=== PATIENT | male | born 1965 | race African-American/Black ===

== ENCOUNTER 2016-07-08 14:16 | Emergency (ER) | payer OTHER ==
[2013-10-28 07:09] VITALS: BMI 23.7
[~2016-07-08 14:16] MED LIST: HYDROCODONE-APA1 TAB PO
== END 2016-07-08 20:40 | disposition home or self-care (01) ==
LOC: D.ER 14:16
DX: L50.9 Urticaria, unspecified (principal); K21.9 Gastro-esophageal reflux disease without esophagitis; F17.200 Nicotine dependence, unspecified, uncomplicated

== ENCOUNTER 2016-08-09 09:48 | Emergency (ER) | payer OTHER ==
[2013-10-28 07:09] VITALS: BMI 23.7
[2016-08-09 10:39] LABS: BASOPHILS 0.1 % (0.0-2.0); EOSINOPHILS 1.5 % (0-7); HEMATOCRIT 40.8 % (42.0-54.0); IMMATURE GRANULOCYTES 0.1 % (0-5); LYMPHOCYTES 24.6 % (15-50); MCH 30.6 pg (26.0-34.0); MCHC 34.3 g/dL (31.0-37.0); MCV 89.3 fL (80.0-100.0); MEAN PLATELET VOLUME 10.1 fL (7.4-10.4); MONOCYTES 18.5 % (2-11); NEUTROPHILS 55.2 % (40-80); PLATELET COUNT 281 10x3/uL (130-400); RBC 4.57 10x6/uL (4.20-6.10); RDW 17.4 % (11.5-14.5); WBC 7.3 10x3/uL (4.8-10.8)
[2016-08-09 10:59] LABS: ALBUMIN 4.5 g/dL (3.4-5.0); ANION GAP 22.9 mmol/L (8-16); BILIRUBIN - TOTAL 0.31 mg/dL (0.2-1.3); CALCIUM 9.4 mg/dL (8.5-10.1); CARBON DIOXIDE 20.4 mmol/L (21.0-32.0); CREATININE - SERUM 2.2 mg/dL (0.6-1.3); POTASSIUM - SERUM 4.3 mmol/L (3.5-5.1); PROTEIN - SERUM 8.6 g/dL (6.4-8.2)
[2016-08-09 11:09] LABS: APPEARANCE HAZY (CLEAR); BILIRUBIN NEGATIVE (NEGATIVE); COLOR YELLOW (YELLOW); GLUCOSE NEGATIVE (NEGATIVE); KETONE NEGATIVE (NEGATIVE); LEUKOCYTE ESTERASE NEGATIVE (NEGATIVE); NITRITE NEGATIVE (NEGATIVE); PROTEIN 1+ mg/dL (NEGATIVE); UROBILINOGEN NORMAL (NORMAL)
[2016-08-09 11:10] LABS: BACTERIA MODERATE /hpf (NONE SEEN); EPITHELIAL CELLS 0-5 /hpf (0-5); MUCUS <1+ /lpf (NONE SEEN)
== END 2016-08-09 15:05 | disposition home or self-care (01) ==
LOC: D.ER 09:48
PROVIDERS: Family Medicine
DX: K86.1 Other chronic pancreatitis (principal); F10.129 Alcohol abuse with intoxication, unspecified; R11.2 Nausea with vomiting, unspecified

== ENCOUNTER 2016-08-30 08:59 | Emergency (ER) | payer OTHER ==
[2013-10-28 07:09] VITALS: BMI 23.7
[2016-08-30 10:22] LABS: BASOPHILS 0.9 % (0.0-2.0); EOSINOPHILS 20.7 % (0-7); HEMATOCRIT 37.1 % (42.0-54.0); HEMOGLOBIN 12.7 g/dL (13.5-17.5); IMMATURE GRANULOCYTES 0.7 % (0-5); LYMPHOCYTES 27.1 % (15-50); MCH 30.6 pg (26.0-34.0); MCHC 34.2 g/dL (31.0-37.0); MCV 89.4 fL (80.0-100.0); MEAN PLATELET VOLUME 11.3 fL (7.4-10.4); MONOCYTES 11.5 % (2-11); NEUTROPHILS 39.1 % (40-80); RBC 4.15 10x6/uL (4.20-6.10); RDW 18.5 % (11.5-14.5); WBC 7.6 10x3/uL (4.8-10.8)
[2016-08-30 10:26] LABS: PLATELET COUNT 210 10x3/uL (130-400)
[2016-08-30 10:38] LABS: ALBUMIN 4.5 g/dL (3.4-5.0); ALKALINE PHOSPHATASE 108 U/L (46-116); ALT (SGPT) 115 U/L (10-68); BILIRUBIN - TOTAL 0.91 mg/dL (0.2-1.3); CALC OSMOLALITY 270 mosm/kg (275-300); CALCIUM 9.4 mg/dL (8.5-10.1); CARBON DIOXIDE 25.3 mmol/L (21.0-32.0); CHLORIDE - SERUM 99 mmol/L (98-107); CREATININE - SERUM 0.9 mg/dL (0.6-1.3); GLUCOSE 82 mg/dL (74-106); POTASSIUM - SERUM 3.2 mmol/L (3.5-5.1); PROTEIN - SERUM 8.5 g/dL (6.4-8.2); SODIUM 136 mmol/L (136-145); UREA NITROGEN 12 mg/dL (7-18); eGFR NON AFRICAN AMERICAN > 90 mL/min (90-120)
== END 2016-08-30 11:16 | disposition home or self-care (01) ==
LOC: D.ER 08:59
PROVIDERS: Emergency Medicine
DX: B34.9 Viral infection, unspecified (principal); M25.50 Pain in unspecified joint; R21 Rash and other nonspecific skin eruption; K86.1 Other chronic pancreatitis

== ENCOUNTER 2020-10-05 11:49 | Emergency (ER) | payer OTHER ==
[~2020-10-05] VITALS: Ht 180.3 cm; Wt 86.4 kg
[2020-10-05 11:54] VITALS: Ht 180.3 cm; Wt 86.4 kg
[2020-10-05] MEDS ORDERED: PERMETHRIN60 GM TOPICAL (12:07)
[2020-10-05 12:12] VITALS: BP 118/70
== END 2020-10-05 12:12 | disposition home or self-care (01) ==
LOC: D.ER 11:49
DX: B86 Scabies (principal)

== ENCOUNTER 2020-11-07 15:33 | Inpatient (IN) | payer OTHER ==
[2020-11-07] VITALS (9 sets, daily range): BP systolic 114–169; BP diastolic 68–101; BMI 25.1
[~2020-11-07] VITALS: Ht 180.3 cm; Wt 85.7 kg
[~2020-11-07 15:33] MED LIST changes: +PERMETHRIN60 GM TOPICAL
[2020-11-07 16:13] LABS: BASOPHILS 1.3 % (0-2); EOSINOPHILS 2.2 % (0-7); HEMATOCRIT 39.4 % (42.0-54.0); HEMOGLOBIN 12.8 g/dL (13.5-17.5); LYMPHOCYTES 33.9 % (15-50); MCH 32.6 pg (26.0-34.0); MCHC 32.6 g/dL (31.0-37.0); MCV 100.1 fL (80.0-100.0); MEAN PLATELET VOLUME 9.9 fL (7.4-10.4); MONOCYTES 13.8 % (2-11); NEUTROPHILS 48.8 % (40-80); PLATELET COUNT 179 10x3/uL (130-400); RBC 3.93 10x6/uL (4.20-6.10); RDW 17.7 % (11.5-14.5); WBC 9.2 10x3/uL (4.8-10.8)
[2020-11-07 16:15] LABS: CALC OSMOLALITY 267 mosm/kg (275-300); CALCIUM 9.8 mg/dL (8.5-10.1); CARBON DIOXIDE 16.5 mmol/L (21.0-32.0); CHLORIDE - SERUM 88 mmol/L (98-107); CREATININE - SERUM 1.7 mg/dL (0.6-1.3); POTASSIUM - SERUM 3.6 mmol/L (3.5-5.1); SODIUM 132 mmol/L (136-145); UREA NITROGEN 10 mg/dL (7-18); eGFR NON AFRICAN AMERICAN 45 mL/min (90-120)
[2020-11-07 16:26] LABS: GLUCOSE 176 mg/dL (74-106)
[2020-11-07 16:41] LABS: ALBUMIN 4.5 g/dL (3.4-5.0); ALKALINE PHOSPHATASE 74 U/L (30-120); ALT (SGPT) 81 U/L (10-68); BILIRUBIN - TOTAL 0.75 mg/dL (0.2-1.3); CREATINE KINASE 520 UL (21-232); LIPASE 683 U/L (73-393); PRO BNP 416 pg/mL (0-125); PROTEIN - SERUM 9.4 g/dL (6.4-8.2)
[2020-11-07 16:50] LABS: CKMB 2.9 U/L (0.0-3.6); TROPONIN-I < 0.017 ng/mL (0.000-0.060)
--- NOTE | 2020-11-07 17:32 | NUR ---
CALLED [facility]ESP[facility]ORY AT THIS TIME FOR ABG'S
--- NOTE | 2020-11-07 17:47 | NUR ---
LATE ENTRY: AROUND 1610 PT STARTED HAVING A SEIZURE, MD VERBALLY GAVE ATIVAN ORDERS, IT WAS ADMINISTERED IM, IN R DELTIOD, PT SEIZURE LASTED APPROX 2 MIN, JERKING, STIFFNESS, FOAMING AT MOUTH NOTED. PT DID RETURN TO SPEAKING VERBALLY AND ANSWERING QUESTION 30 MIN AFTER EPISODE
[2020-11-07 18:37] LABS: UDS - AMPHET NEGATIVE QUAL (NEGATIVE); UDS - BARB NEGATIVE QUAL (NEGATIVE); UDS - BENZO NEGATIVE QUAL (NEGATIVE); UDS - COCAINE NEGATIVE QUAL (NEGATIVE); UDS - OPIATE NEGATIVE QUAL (NEGATIVE); UDS - PCP NEGATIVE QUAL (NEGATIVE); UDS - THC NEGATIVE QUAL (NEGATIVE)
[2020-11-07 18:47] LABS: BILIRUBIN NEGATIVE (NEGATIVE); KETONE NEGATIVE (NEGATIVE); NITRITE NEGATIVE (NEGATIVE); UROBILINOGEN NORMAL mg/dL (< 2)
[2020-11-07 18:48] LABS: BACTERIA MODERATE HPF (NONE SEEN)
--- NOTE | 2020-11-07 20:56 | NUR ---
PT ARRIVED FROM ER PER STRETCHER 2044. AWAKE ALERT AND ORIENTED TO CURRENT BUT DOES NOT RECALL PROCESS OF COMING TO HOSPITAL. STATES HAS BEEN OUT OF SEIZURE MEDS AND WAS GOING TO GET THEM. ON RA WITH BS CLEAR. ABD SOFT WITH ACTIVE BS. SORES HEALING TO LEGS. 20GPIV TO BILATERAL UPPER ARMS. WILL CONT TO MONITOR. ETOH REMOVED FROM BELONGS AND PLACED IN DISPATCH OFFICER OFFICE. PT CALLED MOM TO TELL WHERE HE WAS. NSR ON CM WITH RATE 80
[2020-11-07 21:04] LABS: APTT 24.6 SECONDS (22.8-39.4); INR 1.08 (0.85-1.17)
[2020-11-07 21:22] LABS: % SATURATION 59 % (15-55); IRON 174 ug/dl (35-150); TOTAL IRON BIND CAPACITY 293 ug/dl (260-445); UNSAT IRON BIND CAPACITY 119 ug/dl (150-375)
[2020-11-08] VITALS (22 sets, daily range): BP systolic 130–171; BP diastolic 84–100
[2020-11-08 04:29] LABS: BASOPHILS 0.7 % (0-2); EOSINOPHILS 0.5 % (0-7); HEMATOCRIT 36.6 % (42.0-54.0); HEMOGLOBIN 12.3 g/dL (13.5-17.5); LYMPHOCYTES 12.5 % (15-50); MCH 32.9 pg (26.0-34.0); MCHC 33.6 g/dL (31.0-37.0); MCV 97.9 fL (80.0-100.0); MEAN PLATELET VOLUME 9.8 fL (7.4-10.4); MONOCYTES 15.3 % (2-11); PLATELET COUNT 139 10x3/uL (130-400); RBC 3.74 10x6/uL (4.20-6.10); RDW 17.2 % (11.5-14.5); WBC 7.8 10x3/uL (4.8-10.8)
--- NOTE | 2020-11-08 05:12 | NUR ---
DR OLIVERA AWARE OF CONSULT.
[2020-11-08 05:13] LABS: BILIRUBIN - TOTAL 1.25 mg/dL (0.2-1.3); CALCIUM 8.9 mg/dL (8.5-10.1); CREATININE - SERUM 1.1 mg/dL (0.6-1.3); PROTEIN - SERUM 8.4 g/dL (6.4-8.2)
[2020-11-08 05:14] LABS: ANION GAP 19.5 mmol/L (8-16); CARBON DIOXIDE 22.5 mmol/L (21.0-32.0)
[2020-11-08 12:52] LABS: ANION GAP 17.6 mmol/L (8-16); CALCIUM 8.9 mg/dL (8.5-10.1); CARBON DIOXIDE 23.9 mmol/L (21.0-32.0); CREATININE - SERUM 1.2 mg/dL (0.6-1.3)
[2020-11-08 12:53] LABS: POTASSIUM - SERUM 3.5 mmol/L (3.5-5.1)
[2020-11-09] VITALS (11 sets, daily range): BP systolic 126–183; BP diastolic 66–107; Ht 180.3 cm; Wt 85.7 kg
[2020-11-09 05:21] LABS: BASOPHILS 0.6 % (0-2); EOSINOPHILS 5.4 % (0-7); HEMATOCRIT 32.9 % (42.0-54.0); HEMOGLOBIN 10.9 g/dL (13.5-17.5); LYMPHOCYTES 16.8 % (15-50); MCH 32.8 pg (26.0-34.0); MCHC 33.1 g/dL (31.0-37.0); MCV 99.3 fL (80.0-100.0); MEAN PLATELET VOLUME 9.5 fL (7.4-10.4); MONOCYTES 16.5 % (2-11); NEUTROPHILS 60.7 % (40-80); PLATELET COUNT 118 10x3/uL (130-400); RBC 3.31 10x6/uL (4.20-6.10); RDW 17.5 % (11.5-14.5); WBC 7.3 10x3/uL (4.8-10.8)
[2020-11-09 05:38] LABS: ALBUMIN 3.4 g/dL (3.4-5.0); ANION GAP 16.4 mmol/L (8-16); BILIRUBIN - TOTAL 1.41 mg/dL (0.2-1.3); CALCIUM 8.1 mg/dL (8.5-10.1); CARBON DIOXIDE 23.7 mmol/L (21.0-32.0); CREATININE - SERUM 1.2 mg/dL (0.6-1.3); MAGNESIUM - SERUM 1.7 mg/dL (1.8-2.4); POTASSIUM - SERUM 3.1 mmol/L (3.5-5.1); PROTEIN - SERUM 7.5 g/dL (6.4-8.2)
--- NOTE | 2020-11-10 02:02 | NUR ---
PT RESTING IN BED WITH EYES OPEN WATCHING TV. PT IS BLEEDING FROM HIS L ARM HAS BEEN PICKING @ SKIN/SCABS AND EXPRESS HE WAS FEELING ANXIOUS. PT WAS GIVEN MED AND WILL BE MONITOR.
[2020-11-10 04:00] VITALS: BP 131/82
--- NOTE | 2020-11-10 07:30 | NUR ---
PT. RECEIVED RESTING AWAKE IN BED, IRREGULAR HEART RATE NOTED THROUGH APICAL AND LT RADIAL PULSE. TELE ON, SR 96 AT THIS TIME. DENIES ANY PAIN OR NEEDS AT THIS TIME. ROOM AIR, IV SITES INTACT TO LEFT AND R. UPPER ARMS. NONSKID SOCKS ON, CL WITHIN REACH. PT INDEPENDENT AND RECOGNIZES NEED TO CALL WHEN HELP IS NEEDED. SR UPX2.
[2020-11-10 08:25] VITALS: BP 141/86
[2020-11-10 11:11] LABS: BASOPHILS 0.7 % (0-2); HEMATOCRIT 34.5 % (42.0-54.0); HEMOGLOBIN 11.3 g/dL (13.5-17.5); MCH 32.6 pg (26.0-34.0); MCHC 32.9 g/dL (31.0-37.0); MCV 99.2 fL (80.0-100.0); MEAN PLATELET VOLUME 9.4 fL (7.4-10.4); MONOCYTES 18.6 % (2-11); NEUTROPHILS 56.7 % (40-80); PLATELET COUNT 130 10x3/uL (130-400); RBC 3.48 10x6/uL (4.20-6.10); RDW 17.3 % (11.5-14.5); WBC 7.5 10x3/uL (4.8-10.8)
[2020-11-10 11:30] LABS: ALBUMIN 3.8 g/dL (3.4-5.0); ANION GAP 22.2 mmol/L (8-16); BILIRUBIN - TOTAL 1.24 mg/dL (0.2-1.3); CALCIUM 8.9 mg/dL (8.5-10.1); CARBON DIOXIDE 18.7 mmol/L (21.0-32.0); CREATININE - SERUM 1.2 mg/dL (0.6-1.3); PROTEIN - SERUM 7.6 g/dL (6.4-8.2)
[2020-11-10 11:36] LABS: POTASSIUM - SERUM 3.9 mmol/L (3.5-5.1)
[2020-11-10 13:01] VITALS: BP 164/99
[2020-11-10 14:34] LABS: CHOL - HDL RATIO 2.8 ratio (2.3-4.9); LDL-HDL RATIO 1.6 ratio (1.5-3.5)
--- NOTE | 2020-11-10 17:05 | NUR ---
HOLD DINNER TRAY PER ORDER BECAUSE PANCREATIC ENZYMES ARE INCREASED. MY HAVE SIPS AND CHIPS. PATIENT VERBALIZED UNDERSTANDING. CALL LIGHT WITHIN REACH. PHYSICIAN WILL REEVALUATE IN AM.
--- NOTE | 2020-11-10 17:08 | NUR ---
5MG APRESOLINE GIVEN IVP FOR BP 178/101. DINNER TRAY HELD PER MD ORDER. PT GIVEN ICE CHIPS.
[2020-11-10 17:18] VITALS: BP 178/101
[2020-11-10 20:00] VITALS: BP 150/88
[2020-11-11] VITALS: BP 167/94
[2020-11-11 04:00] VITALS: BP 155/88
--- NOTE | 2020-11-11 05:00 | NUR ---
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 I LET HIM KNOW THAT I WILL INFORM THE NURSE IN THE AM ABOUT IT.
--- NOTE | 2020-11-11 05:15 | NUR ---
CHANGE PT BEDDIG AND SHEETS HE DENIED WANTING A SHOWER, WIPES WERE PROVIDE FOR PERSONAL CLEANING. WILL CONT TO MONITOR.
[2020-11-11 06:17] LABS: HEMATOCRIT 33.1 % (42.0-54.0); HEMOGLOBIN 11.2 g/dL (13.5-17.5); MCH 33.5 pg (26.0-34.0); MCHC 33.8 g/dL (31.0-37.0); MCV 99.3 fL (80.0-100.0); MEAN PLATELET VOLUME 9.8 fL (7.4-10.4); PLATELET COUNT 142 10x3/uL (130-400); RBC 3.34 10x6/uL (4.20-6.10); RDW 17.1 % (11.5-14.5); WBC 6.3 10x3/uL (4.8-10.8)
[2020-11-11 06:36] LABS: ALBUMIN 3.8 g/dL (3.4-5.0); ALKALINE PHOSPHATASE 58 U/L (30-120); ALT (SGPT) 49 U/L (10-68); BILIRUBIN - TOTAL 1.17 mg/dL (0.2-1.3); CALC OSMOLALITY 267 mosm/kg (275-300); CALCIUM 9.5 mg/dL (8.5-10.1); CARBON DIOXIDE 19.8 mmol/L (21.0-32.0); CHLORIDE - SERUM 97 mmol/L (98-107); GLUCOSE 89 mg/dL (74-106); LIPASE 669 U/L (73-393); POTASSIUM - SERUM 3.4 mmol/L (3.5-5.1); PROTEIN - SERUM 8.3 g/dL (6.4-8.2); SODIUM 133 mmol/L (136-145); UREA NITROGEN 21 mg/dL (7-18); eGFR NON AFRICAN AMERICAN 82 mL/min (90-120)
[2020-11-11 07:30] LABS: EOSINOPHILS 7 % (0-7); LYMPHOCYTES 23 % (15-50); MONOCYTES 18 % (2-11); NEUTROPHILS 50 % (40-80); PLATELET ESTIMATE NORMAL; PLATELET MORPHOLOGY GIANT PLTS PRESENT
[2020-11-11 08:15] VITALS: BP 160/92
[2020-11-11 11:43] VITALS: BP 148/97
--- NOTE | 2020-11-11 13:11 | NUR ---
0700 BEDSIDE REPORT RECEIVED AWAKE ALERT IN BED WITHOUT COMPLAINTS
--- NOTE | 2020-11-11 13:12 | NUR ---
1205 NEW ORDER NOTED FOR DIABETIC DIET CALLED KITCHEN TO BRING A LUNCH TRAY UP FOR PATIENT
--- NOTE | 2020-11-11 13:16 | NUR ---
1100 NOTIFIED HELEN WHYTE, ASKING FOR DIET TRAY. STATED LIPASE ELEVATED AND TO GIVE PT JELLO FOR NOW
[2020-11-12 01:35] VITALS: BP 161/94
--- NOTE | 2020-11-12 03:04 | NUR ---
I have reviewed this patient and I concur with the Shift Assessment completed by the Licensed Practical Nurse today this shift.
--- NOTE | 2020-11-12 03:52 | NUR ---
PT BP 233/131 HR 158 MED GIVEN BP MONITORED FOR 1H. BP DOWN TO 168/100 HR 108. WILL CONT TO MONITOR PT.
[2020-11-12 04:58] VITALS: BP 156/92
[2020-11-12 08:24] VITALS: BP 162/95
[2020-11-12 09:20] LABS: ALBUMIN 3.8 g/dL (3.4-5.0); ALKALINE PHOSPHATASE 60 U/L (30-120); ALT (SGPT) 57 U/L (10-68); BILIRUBIN - TOTAL 1.15 mg/dL (0.2-1.3); CALC OSMOLALITY 267 mosm/kg (275-300); CALCIUM 9.4 mg/dL (8.5-10.1); CARBON DIOXIDE 18.6 mmol/L (21.0-32.0); CHLORIDE - SERUM 97 mmol/L (98-107); GLUCOSE 106 mg/dL (74-106); LIPASE 557 U/L (73-393); POTASSIUM - SERUM 3.6 mmol/L (3.5-5.1); PROTEIN - SERUM 8.3 g/dL (6.4-8.2); SODIUM 133 mmol/L (136-145); UREA NITROGEN 19 mg/dL (7-18); eGFR NON AFRICAN AMERICAN 82 mL/min (90-120)
[2020-11-12 09:21] LABS: BASOPHILS 0.6 % (0-2); EOSINOPHILS 8.4 % (0-7); HEMATOCRIT 35.9 % (42.0-54.0); HEMOGLOBIN 11.8 g/dL (13.5-17.5); LYMPHOCYTES 26.3 % (15-50); MCH 32.9 pg (26.0-34.0); MCV 99.9 fL (80.0-100.0); MONOCYTES 22.4 % (2-11); NEUTROPHILS 42.3 % (40-80); RDW 17.2 % (11.5-14.5); WBC 6.1 10x3/uL (4.8-10.8)
[2020-11-12 09:26] LABS: PLATELET COUNT 173 10x3/uL (130-400)
[2020-11-12 13:02] VITALS: BP 159/82
[2020-11-12 17:44] VITALS: BP 139/77
[2020-11-12 20:00] VITALS: BP 147/93
[2020-11-13] VITALS: BP 149/4
--- NOTE | 2020-11-13 02:29 | NUR ---
I have reviewed this patient and I concur with the Shift Assessment completed by the Licensed Practical Nurse today this shift.
[2020-11-13 06:24] LABS: HEMATOCRIT 34.2 % (42.0-54.0); HEMOGLOBIN 11.2 g/dL (13.5-17.5); MCH 32.7 pg (26.0-34.0); MCHC 32.7 g/dL (31.0-37.0); MCV 100.1 fL (80.0-100.0); MEAN PLATELET VOLUME 9.7 fL (7.4-10.4); PLATELET COUNT 164 10x3/uL (130-400); RBC 3.42 10x6/uL (4.20-6.10); RDW 16.5 % (11.5-14.5); WBC 5.2 10x3/uL (4.8-10.8)
[2020-11-13 07:01] LABS: ALBUMIN 3.6 g/dL (3.4-5.0); ALKALINE PHOSPHATASE 51 U/L (30-120); ALT (SGPT) 63 U/L (10-68); BILIRUBIN - TOTAL 0.78 mg/dL (0.2-1.3); CALC OSMOLALITY 271 mosm/kg (275-300); CALCIUM 9.1 mg/dL (8.5-10.1); CARBON DIOXIDE 22.3 mmol/L (21.0-32.0); CHLORIDE - SERUM 101 mmol/L (98-107); GLUCOSE 99 mg/dL (74-106); LIPASE 454 U/L (73-393); POTASSIUM - SERUM 3.8 mmol/L (3.5-5.1); PROTEIN - SERUM 7.3 g/dL (6.4-8.2); SODIUM 135 mmol/L (136-145); UREA NITROGEN 18 mg/dL (7-18); eGFR NON AFRICAN AMERICAN 82 mL/min (90-120)
[2020-11-13 08:05] LABS: EOSINOPHILS 11 % (0-7); LYMPHOCYTES 35 % (15-50); MONOCYTES 12 % (2-11); NEUTROPHILS 32 % (40-80); PLATELET ESTIMATE NORMAL
[2020-11-13 08:50] VITALS: BP 179/99
[2020-11-13 13:31] VITALS: BP 166/88
[2020-11-13 17:08] VITALS: BP 107/72
--- NOTE | 2020-11-13 19:00 | NUR ---
BEDSIDE REPORT RECEIVED AND CARE OF PT ASSUMED. PT LYING IN LOW BURGOS'S POSITION WATCHING TV. IV TO RIGHT FA PATENT WITH NS INFUSING AT 30 ML/HR. TELEMETRY IN PLACE PER ORDER AND READING 84 SR AT THIS ASSESSMENT. WILL MONITOR FOR NEEDS.
[2020-11-13 20:00] VITALS: BP 177/93
--- NOTE | 2020-11-13 21:30 | NUR ---
PT SHOWERED AND ALL LINENS AND GOWN CHANGED.
--- NOTE | 2020-11-13 22:17 | NUR ---
HS MEDICATIONS GIVEN TO INCLUDE ATIVAN 1 MG IVP PER PT REQUEST FOR ANXIETY.
[2020-11-14] VITALS: BP 165/91
[2020-11-14 04:00] VITALS: BP 148/86
[2020-11-14 06:51] LABS: BASOPHILS 0.9 % (0-2); HEMATOCRIT 35.1 % (42.0-54.0); HEMOGLOBIN 11.7 g/dL (13.5-17.5); LYMPHOCYTES 24.1 % (15-50); MCH 33.4 pg (26.0-34.0); MCHC 33.5 g/dL (31.0-37.0); MCV 99.8 fL (80.0-100.0); MEAN PLATELET VOLUME 9.8 fL (7.4-10.4); MONOCYTES 23.8 % (2-11); NEUTROPHILS 40.2 % (40-80); PLATELET COUNT 193 10x3/uL (130-400); RBC 3.52 10x6/uL (4.20-6.10); RDW 16.3 % (11.5-14.5); WBC 5.8 10x3/uL (4.8-10.8)
[2020-11-14 07:14] LABS: ALBUMIN 3.7 g/dL (3.4-5.0); ALKALINE PHOSPHATASE 61 U/L (30-120); ALT (SGPT) 70 U/L (10-68); BILIRUBIN - TOTAL 0.79 mg/dL (0.2-1.3); CALC OSMOLALITY 264 mosm/kg (275-300); CALCIUM 9.6 mg/dL (8.5-10.1); CARBON DIOXIDE 20.3 mmol/L (21.0-32.0); CHLORIDE - SERUM 98 mmol/L (98-107); GLUCOSE 103 mg/dL (74-106); LIPASE 417 U/L (73-393); MAGNESIUM - SERUM 1.3 mg/dL (1.8-2.4); POTASSIUM - SERUM 3.4 mmol/L (3.5-5.1); PROTEIN - SERUM 8.3 g/dL (6.4-8.2); SODIUM 132 mmol/L (136-145); eGFR NON AFRICAN AMERICAN 82 mL/min (90-120)
[2020-11-14 07:15] LABS: UREA NITROGEN 12 mg/dL (7-18)
[2020-11-14 10:49] VITALS: BP 129/76
[2020-11-14 12:28] VITALS: BP 135/81
[2020-11-14] MEDS ORDERED: THERAGRAN M [BK1 TAB PO (13:49)
[2020-11-14] MEDS ORDERED: KEPPRA500 MG PO (13:49)
[2020-11-14] MEDS ORDERED: HYDROXYZINE HCL10 MG PO (13:51)
--- NOTE | 2020-11-14 14:38 | NUR ---
PATIENT IV REMOVED WITH CATH TIP INTACT. WAITING FOR DISCHARGE PAPERS FOR DC. CALL LIGHT WITHIN REACH.
--- NOTE | 2020-11-14 15:00 | MORECARE ---
CASE MANAGEMENT DISCHARGE SUMMARY PATIENT: MARIA ANTONIA GUAJARDO UNIT: [id number] ADM DATE: 11/07/20 AGE: 55 : 65 SEX: M ROOM/BED: D.2239 AUTHOR: KIMO LOPEZ PHYSICIAN: REFERRING PHYSICIAN: MARGARITO MCCAIN MD DATE OF SERVICE: 11/14/20 Case Management Discharge Planning Summary COMMENTS ENTERED DATE: 11/14/20 14:51 CT COMMENT TYPE: Discharge Planning REVIEWER: Delfina Pereyra CM MET WITH PATIENT ABOUT DC PLANNING NEEDS. PATIENT DENIES THE NEED FOR HOME HEALTH, REHAB OR MEDICAL EQUIPMENT. STATES PLANS TO DC TO HOME TODAY AND WILL TAKE THE BUS. ALCOHOL EDUCATION PRINTED AND GIVEN TO PATIENT. CM TO FOLLOW AND ASSIST NEEDED. DCP REVIEW SUMMARY ANTICIPATED D/C DATE: EXPECTED LOS : CASE STATUS: DCP Initiated INITIAL REVIEW: 11/07/2020 INITIAL REVIEWER: Delfina Pereyra FINAL DISCHARGE DISPOSITION: : FINAL REVIEWER: FINAL REVIEW DATE: DCP Focus Questions & Answers DCP Screen QUESTION: ANSWER High Risk Factors: : Poor health literacy DCP Evaluation QUESTION: ANSWER Patient's current cognitive status: : *Oriented to person, place, situation, time and present Patient's ability to cope with chronic illness : d. No chronic illness Functional screen assessment: : Can meet basic needs but may require referral for resources Physical Status: : Independent with ADL's Living Arrangements: : Home Alone with Support Patient with capacity for self-care or can be cared for in same environment as prior to hospitalization? : Yes Baseline cognitive status: : *Oriented to person, place, situation, time and present Would patient like to participate in any Care Coordination programs (if applicable): : Not applicable Mental health screen: : No mental health history DCP Re-evaluation QUESTION: ANSWER Would patient like to participate in any Care Coordination programs (if applicable): : Not applicable PATIENT: MARIA ANTONIA GUAJARDO ENCOUNTER: [id number] MEDICAL RECORD#: [id number] ADMISSION DATE: 11/07/2020 DISCHARGE DATE: ATTENDING MD: MARGARITO FERREIRA : AGE: 55 MARITAL STATUS: S DC PLAN ID: [id number] FACILITY: [facility] PRINTED ON: 11/14/20 14:59 CT All edits/amendments must be made on the electronic document DICTATION DATE: 11/14/201458 INSURANCE SERVICE REPRESENTATIVE: DM 11/14/201458 RPT#: [id number] DC DATE: STATUS: ADM IN [facility] [address] [place] [address] END OF REPORT
--- NOTE | 2020-11-14 15:15 | NUR ---
PATIENT RECIEVED DC INSTRUCTIONS. VERBALIZED UNDERSTANDING. STATED HE WOULD BE CATCHING A BUS TO GET HOME. REMINDED PATIENT TO MAKE SURE HE PICKS UP HIS MEDICATIONS FROM [facility]. VERBALIZED UNDERSTANDING. AMBULATED WITH PATIENT OUT OF TO THE ER WITH PERSONAL BELONGINGS. PATIENT IS GOING TO CATCH BUS FOR TRANSPORTATION HOME.
== END 2020-11-14 15:37 | disposition home or self-care (01) | DRG 100 ==
LOC: D.ER 15:33 → D.ICU 19:09 → D.MS 19:09
PROVIDERS: Emergency Medicine; Family Medicine; ADMIT Family Medicine Adult Medicine; ATTEND Family Medicine Adult Medicine
DX: R56.9 Unspecified convulsions (principal); K85.90 Acute pancreatitis without necrosis or infection, unspecified; G93.41 Metabolic encephalopathy; E87.2 Acidosis; M62.82 Rhabdomyolysis; N39.0 Urinary tract infection, site not specified; E87.1 Hypo-osmolality and hyponatremia; N17.9 Acute kidney failure, unspecified; F10.129 Alcohol abuse with intoxication, unspecified; Y90.1 Blood alcohol level of 20-39 mg/100 ml; I10 Essential (primary) hypertension; E83.42 Hypomagnesemia; Z91.14 Patient's other noncompliance with medication regimen; D53.9 Nutritional anemia, unspecified; R74.01 Elevation of levels of liver transaminase levels